=== PATIENT | male | born 1990 | race Caucasian/White ===

== ENCOUNTER 2016-08-22 18:28 | Emergency (ER) | payer MEDICAID ==
[2016-08-22 18:38] VITALS: BP 127/83; PULSE 81; RESP 18; TEMP 97.5; O2SAT 94
--- NOTE | 2016-08-22 19:38 | EDPHY ---
H & P Stated Complaint: hiatal hernia surg at [facility] 1 month ago/needs a gtube cant keep pain meds beverly Time Seen by Provider: 08/22/16 18:50 HPI/ROS: CHIEF COMPLAINT: Chronic abdominal pain HISTORY OF PRESENT ILLNESS: Patient is a 25-year-old man with a history of chronic abdominal pain. He is status post hernia repair 1 month ago at [facility]. He states he is not happy with the surgeon there and is seeking care elsewhere. He states that for the last month he has been unable to keep down medications or food or water. He states that his primary care physician has referred him to get a G-tube however he missed the phone call today. He has not had a fever. He is not vomiting. No diarrhea. He states that his pain and symptoms are at baseline. REVIEW OF SYSTEMS: Constitutional: denies: chills, fever, recent illness, recent injury EENTM: denies: blurred vision, double vision, nose congestion Respiratory: denies: cough, shortness of breath Cardiac: denies: chest pain, irregular heart rate, lightheadedness, palpitations Gastrointestinal/Abdominal: See HPI Genitourinary: denies: dysuria, frequency, hematuria, pain Musculoskeletal: denies: joint pain, muscle pain Skin: denies: lesions, rash, jaundice, bruising Neurological: denies: headache, numbness, paresthesia, tingling, dizziness, weakness Hematologic/Lymphatic: denies: blood clots, easy bleeding, easy bruising Immunologic/allergic: denies: HIV/AIDS, transplant EXAM: GENERAL: Well-appearing, well-nourished and in no acute distress. HEAD: Atraumatic, normocephalic. EYES: Pupils equal round and reactive to light, extraocular movements intact, sclera anicteric, conjunctiva are normal. ENT: TMs normal, nares patent, oropharynx clear without exudates. Moist mucous membranes. NECK: Normal range of motion, supple without lymphadenopathy or JVD. LUNGS: Breath sounds clear to auscultation bilaterally and equal. No wheezes rales or rhonchi. HEART: Regular rate and rhythm without murmurs, rubs or gallops. ABDOMEN: Soft, nontender, multiple scars. No guarding, no rebound. No masses appreciated. BACK: No CVA tenderness, no spinal tenderness, step-offs or deformities EXTREMITIES: Normal range of motion, no pitting or edema. No clubbing or cyanosis. NEUROLOGICAL: Cranial nerves II through XII grossly intact. Normal speech, normal gait. 5/5 strength, normal movement in all extremities, normal sensation PSYCH: Normal mood, normal affect. SKIN: Warm, dry, normal turgor, no visible rashes or lesions. Source: Patient Exam Limitations: No limitations - Personal History Current Tetanus/Diphtheria Vaccine: Yes - Medical/Surgical History Hx Asthma: Yes Hx Chronic Respiratory Disease: No Hx Diabetes: No Hx Cardiac Disease: Yes Hx Renal Disease: No Hx Cirrhosis: No Hx Alcoholism: Yes Hx HIV/AIDS: No Hx Splenectomy or Spleen Trauma: No Other PMH: MEDICAL- ASTHMA, CONGENTIAL HEART DISEASE, KIDNEY DISEASE, FORMED IVDA, BIPOLAR, HEP C. SURGICAL- X2 OPEN HEART, L INGUINAL HERNIA, ABD SURGERY. Chronic pain - Family History Significant Family History: Hypertension - Social History Smoking Status: Former smoker Alcohol Use: Occasionally Drug Use: Other Constitutional: Initial Vital Signs Temperature (C) 36.4 C 08/22/16 18:34 Heart Rate 81 08/22/16 18:34 Respiratory Rate 18 08/22/16 18:34 Blood Pressure 127/83 H 08/22/16 18:34 O2 Sat (%) 94 08/22/16 18:34 O2 Delivery Mode Room Air Allergies/Adverse Reactions: carbamazepine [From Tegretol] Allergy (Verified 08/22/16 18:33) lamotrigine [From Lamictal] Allergy (Verified 08/22/16 18:33) trazodone Allergy (Verified 08/22/16 18:33) Home Medications: Medication Instructions Recorded Ativan 08/22/16 Bentyl 10 MG (*) 08/22/16 DILAUDID 08/22/16 Medical Decision Making ED Course/Re-evaluation: We discussed the options. We discussed indications for lab work and imaging. The patient feels that they are necessary because he is not having any new or changed symptoms. He is here simply requesting help with pain control and requesting IV narcotics. We discussed options and I informed him that we have a policy against prescribing narcotics for chronic pain. I did offer him several alternatives which she declined. He states that if we are not going to help him with narcotics that he will go elsewhere. Differential Diagnosis: Partial list of the Differential diagnosis considered include but were not limited to; substance abuse, narcotic dependency, chronic abdominal pain and although unlikely based on the history and physical exam, I also considered obstruction, ischemia, hernia, incarceration, PE. Departure - Departure Disposition: Home, Routine, Self-Care Clinical Impression: Chronic abdominal pain, Narcotic dependency, continuous Condition: Fair Instructions: Narcotic Abuse (ED), Chronic Abdominal Pain (ED) Referrals: NONE *PRIMARY CARE P,. [Primary Care Provider] - As per Instructions [facility],. [Clinic] - As per Instructions
== END 2016-08-22 19:43 | disposition home or self-care (01) ==
DX: R10.9 Unspecified abdominal pain (principal); F11.20 Opioid dependence, uncomplicated; G89.29 Other chronic pain; J45.909 Unspecified asthma, uncomplicated; Z87.891 Personal history of nicotine dependence

== ENCOUNTER 2018-09-29 13:06 | Emergency (ER) | payer OTHER, MEDICAID | END 2018-09-29 16:08 ==